=== PATIENT | male | born 1935 | race Asian ===

== ENCOUNTER 2016-11-17 14:01 | Emergency (ER) | payer MEDICARE, MEDICAID ==
--- NOTE | 2016-11-17 14:28 | ED Physician Chart ---
ED Chief Complaint/HPI - Patient Information Date Seen:: 11/17/16 Time Seen:: 14:27 Chief Complaint:: SYNCOPAL EPISODE 2 DAYS AGO Allergies:: Allergies Allergy/AdvReac Type Severity Reaction Status Date / Time No Known Allergies Allergy Verified 11/17/16 14:18 Vitals:: Vital Signs - 8 hr 11/17/16 14:18 Temp 98.2 F HR 76 RR 16 BP 121/66 O2 Sat % 97 ED Review of Systems - Review of Systems Neurological: Dizziness Family Medical History - Family Member Daughter Hx Family Cancer: No Hx Family Congestive Heart Failure: No Hx Family Hypertension: No Hx Family Stroke: No Hx Family Diabetes: No Hx Family Seizures: No Hx Family Dementia: No Hx Family AIDS: No Hx Family HIV: No Hx Family Hepatitis: No Hx Family Tuberculosis: No ED Physical Exam - Physical Examination General/Constitutional: Awake, Well-developed, well-nourished, Alert, No distress, GCS 15, Non-toxic appearing, Ambulatory Head: Atraumatic Eyes: Lids, conjuctiva normal, PERRL, EOMI Other Eyes comments:: Right eye with cataract present and left eye with lens implants. The patient has marked arcus of both corneas. Skin: No rash, No skin lesions, No ecchymosis, Well hydrated, No lymphadenopathy Other Skin comments:: MILD HYPER PIGMENTATION BOTH ANTERIOR TIBIAL AREAS ENMT: External ears, nose nl, TM canals nl, Nasal exam nl, Oropharynx nl, Tonsils nl Other ENMT comments:: Teeth poor repair. Good mucosal hydration. Neck: Nontender, Full ROM w/o pain, No JVD, No nuchal rigidity, No bruit, No mass, No stridor Other Neck comments:: Strong carotid pulses bilaterally. Respiratory: Nl effort/Exclusion, Clear to Auscultation, No Wheeze/Rhonchi/Rales Cardio Vascular: RRR, No murmur, gallop, rubs, NL S1 S2, Carotid/Femoral/Distal pulses equal bilaterally GI: No tenderness/rebounding/guarding, No organomegaly, No hernia, Normal BS's, Nondistended, No mass/bruits, No McBurney tenderness Other GI comments:: Rectal exam deferred at my discretion. : No CVA tenderness Extremities: No tenderness or effusion, Full ROM, normal strength in all extremities, No edema, Normal digits & nails Neuro/Psych: Alert/oriented, DTR's symmetric, Normal sensory exam, Normal motor strength, Mood normal, Normal gait Other Neuro/Psych comments:: Normal finger-nose and normal rapid alternating hand movements. ED Labs/Radiology/EKG Results - Lab Results Results: Laboratory Tests 11/17/16 11/17/16 11/17/16 14:47 14:47 14:47 WBC 8.4 RBC 3.99 Hgb 11.3 L Hct 33.8 L MCV 84.7 MCH 28.4 MCHC Differential 33.5 RDW 13.1 Plt Count 223 MPV 7.6 Neutrophils % 56.8 Lymphocytes % 32.2 Monocytes % 7.0 Eosinophils % 3.5 Basophils % 0.5 Sodium 133 L Potassium 4.4 Chloride 102 Carbon Dioxide 23.9 Anion Gap 11.5 BUN 20 Creatinine 1.3 Est GFR ( Amer) TNP Est GFR (Non-Af Amer) TNP BUN/Creatinine Ratio 15.4 Glucose 105 Calcium 10.1 Troponin I 0.02 VERY MILD ANEMIA WITHOUT CLINICAL SIGNIFICANCE. NO HYPOGLYCEMIA. NO SIGNIFICANT ELECTROLYTE IMBALANCE. TROPONIN WITHIN NORMAL PARAMETERS. CXR SINGLE PA VIEW: NO CARDIOMEGALY OR CHF. NO MEDIASTINAL WIDENING. NO PNEUMOTHORAX. NO PLEURAL EFFUSIONS. NO AREAS OF PULMONARY CONSOLIDATION. IMPRESSION: NO ACUTE CARDIOPULMONARY ABNORMALITIES. - EKG Interpretations EKG Time:: 14:52 Rate & Rhythm: normal sinus rhythm at a rate of 69 with no ectopy. [place]: the axis is normal. Intervals: normal ME interval. Normal QRS duration. Normal QT interval. Comments:: There is diffuse minimal elevation of the ST segments Impression: boardefline normal EKG. ED Septic Shock - . Is Septic Shock (SBP<90, OR Lactate>4 mmol\L) present?: No - <6hrs of presentation: Vital Signs: Vital Signs - 8 hr 11/17/16 14:18 Temp 98.2 F HR 76 RR 16 BP 121/66 O2 Sat % 97 ED Discharge Plan - Patient Disposition Instructions: Syncope, [id number]
[2016-11-17 15:19] LABS: % BASOPHILS 0.5 % (0.0-2.0); % EOSINOPHILS 3.5 % (0.0-5.0); % LYMPHOCYTES 32.2 % (20.0-50.0); % NEUTROPHILS 56.8 % (40.0-80.0); HEMATOCRIT 33.8 % (39.0-49.0); HEMOGLOBIN 11.3 gm/dL (12.6-17.4); MEAN CELL VOLUME 84.7 fl (80-99); MEAN CORPUSCULAR HEMOGLOBIN 28.4 pg (27.0-31.0); MEAN CORPUSCULAR HGB CONC 33.5 pg (28.0-36.0); MEAN PLATELET VOLUME 7.6 fl; NEUTROPHILE ABSOLUTE 4.8 Th/cmm (1.8-8.0); PLATELET COUNT 223 Th/cmm (150-400); RED BLOOD COUNT 3.99 Mil/cmm (3.80-5.80); RED CELL DISTRIBUTION WIDTH 13.1 % (11.5-20.0); WHITE BLOOD COUNT 8.4 Th/cmm (4.8-10.8)
[2016-11-17 15:30] LABS: ANION GAP 11.5 (7.0-16.0); BUN - UREA NITROGEN 20 mg/dL (7-25); BUN/CREATININE RATIO 15.4; CALCIUM SERUM 10.1 mg/dL (8.6-10.3); CARBON DIOXIDE 23.9 mEq/L (21.0-31.0); CHLORIDE 102 mEq/L (98-107); CREATININE - SERUM 1.3 mg/dL (0.7-1.3); GLUCOSE 105 mg/dL (70-105); POTASSIUM SERUM 4.4 mEq/L (3.5-5.1); SODIUM SERUM 133 mEq/L (136-145)
--- NOTE | 2016-11-18 07:56 | Diagnostic Imaging Report ---
CHEST X-RAY: AP view INDICATION: Syncope, weakness COMPARISON: None FINDINGS: There is no focal consolidation or pleural effusions The heart is normal in size. The osseous structures demonstrate no acute abnormalities. IMPRESSION: No focal consolidation identified.
--- NOTE | 2016-11-18 07:58 | Diagnostic Imaging Report ---
Bilateral carotid Doppler ultrasound exam HISTORY: Syncope Sonographic sector images were obtained to the carotid bifurcation regions bilaterally. Associated Doppler data was obtained. The exam demonstrates mild diffuse atherosclerotic changes throughout the bifurcation region. Focal irregular atherosclerotic plaque is noted within the common carotid artery in the region of the carotid bulb. Changes result in greater than 70% narrowing. Antegrade vertebral artery flow. Velocities and flow ratios are normal (size CSF CCA is 1.67). The exam of the left side demonstrates mild diffuse outs chronic changes and intimal thickening throughout the bifurcation region. Mild focal plaque noted in the distal carotid bulb region at the origin of the left internal and external carotid arteries. Changes result in less than 25% narrowing. Anterior vertebral artery flow. Velocities and flow ratios are normal (ICC/CCA equals 1.24). IMPRESSION: 1. Relatively large focus of intraluminal irregular plaque within the right common carotid artery regions/carotid bulb area. A CT angiogram study is recommended for further detail and assessment. 2. Mild diffuse atherosclerotic changes on the left side.
== END 2016-11-17 19:20 ==
LOC: ER 14:01
DX: R55 Syncope and collapse (principal); R94.31 Abnormal electrocardiogram [ECG] [EKG]
CPT/HCPCS: 36415-UA; 71010-TC; 80048-TC; 84484-TC; 85025-TC; 93005; 93880-TC

== ENCOUNTER 2016-12-08 10:24 | Inpatient (IN) | payer MEDICARE, MEDICAID ==
--- NOTE | 2016-12-08 10:40 | ED Physician Chart ---
ED Chief Complaint/HPI - Patient Information Date Seen:: 12/08/16 Time Seen:: 10:35 Chief Complaint:: Syncope History of Present Illness:: onset x one day of sycope, N/V; no trauma, H/As, neck pain, C/P, SOB, Abd. Pain , A/D/C, fever, chills, urinary s/s paresthesias, weakness,; pt admits to dizziness/vertigo Allergies:: Allergies Allergy/AdvReac Type Severity Reaction Status Date / Time No Known Allergies Allergy Verified 11/17/16 14:18 Historian:: Patient, Family Member Review:: Nurse's Note Reviewed ED Review of Systems - Review of Systems General/Constitutional: Fever, Chills, No weight loss, No weakness, No diaphoresis, No edema, No loss of appetite Skin: No skin lesions, No rash, No bruising Head: No headache, No light-headedness Eyes: No loss of vision, No pain, No diplopia ENT: No earache, No nasal drainage, No sore throat, No tinnitus Neck: No neck pain, No swelling, No thyromegaly, No stiffness, No mass noted Cardio Vascular: No chest pain, No palpitations, No PND, No orthopnea, No edema Pulmonary: No SOB, No cough, No sputum, No wheezing GI: No nausea, No vomiting, No diarrhea, No pain, No melena, No hematochezia, No constipation, No hematemesis G/U: No dysuria, No frequency, No hematuria Musculoskeletal: No bone or joint pain, No back pain, No muscle pain Endocrine: Polyuria, Polydipsia Psychiatric: No prior psych history, No depression, No anxiety, No suicidal ideation Hematopoietic: No bruising, No lymphadenopathy Allergic/Immuno: No urticaria, No angioedema Neurological: Syncope, No focal symptoms, Weakness, No paresthesia, No headache , No seizure, Dizziness, Confusion, Vertigo ED Past Medical History - Past Medical History Obtainable: Yes Past Medical History: HTN, DM, Dementia Family History: Diabetes Melitus, HTN Social History: Non Smoker, No Alcohol, No Drug Use, Surgical History: None Psychiatricy History: Dementia Medication: Reviewed Family Medical History - Family Member Daughter Hx Family Cancer: No Hx Family Congestive Heart Failure: No Hx Family Hypertension: No Hx Family Stroke: No Hx Family Diabetes: No Hx Family Seizures: No Hx Family Dementia: No Hx Family AIDS: No Hx Family HIV: No Hx Family Hepatitis: No Hx Family Tuberculosis: No ED Physical Exam - Physical Examination General/Constitutional: Awake, Well-developed, well-nourished, Alert, No distress, GCS 15, Non-toxic appearing, Ambulatory Head: Atraumatic Eyes: Lids, conjuctiva normal, PERRL, EOMI Skin: Nl inspection, No rash, No skin lesions, No ecchymosis, Well hydrated, No lymphadenopathy ENMT: External ears, nose nl, Nasal exam nl, Lips, teeth, gums nl Neck: Nontender, Full ROM w/o pain, No JVD, No nuchal rigidity, No bruit, No mass, No stridor Respiratory: Nl effort/Exclusion, Clear to Auscultation, No Wheeze/Rhonchi/Rales Cardio Vascular: RRR, No murmur, gallop, rubs, NL S1 S2 GI: No tenderness/rebounding/guarding, No organomegaly, No hernia, Normal BS's, Nondistended, No mass/bruits, No McBurney tenderness : No CVA tenderness Extremities: No tenderness or effusion, Full ROM, normal strength in all extremities, No edema, Normal digits & nails Neuro/Psych: Alert/oriented, DTR's symmetric, Normal sensory exam, Normal motor strength, Judgement/insight normal, Mood normal, Normal gait, No focal deficits ED Labs/Radiology/EKG Results - Lab Results Results: Na+: 133 - Radiology Results Results: NAD - EKG Interpretations EKG Time:: 10:50 Rate & Rhythm: 70; NSR Comments:: nonspecific st-t changes ED Septic Shock - . Is Septic Shock (SBP<90, OR Lactate>4 mmol\L) present?: No ED Reassessment (Disposition) - Reassessment Reassessment Condition:: Improved - Diagnosis Diagnosis:: Syncope; Nausea/Vomiting; Gastritis; TIA; Cardiac Arrythmias - Aftercare/Follow up Instructions Aftercare/Follow-Up Instructions:: Counseled pt regarding lab results/diagnosis & need follow up, Counseled pt & family regarding lab results/diagnosis & need follow up - Patient Disposition Discharge/Transfer:: Acute Care w/in this hosp Accepting Physician:: Dr. Wall Time Called:: 1140 Time Responded:: 11:40 Admitted to:: Telemetry Spoke to:: Dr. Wall Admitting Medical Physician:: Dr. Wall Condition at Disposition:: Stable, Improved
[2016-12-08 11:01] LABS: % BASOPHILS 0.9 % (0.0-2.0); % EOSINOPHILS 1.3 % (0.0-5.0); % LYMPHOCYTES 15.6 % (20.0-50.0); % MONOCYTES 5.7 % (2.0-10.0); % NEUTROPHILS 76.5 % (40.0-80.0); HEMATOCRIT 35.1 % (41.0-60); HEMOGLOBIN 11.6 gm/dL (12-16); MEAN CELL VOLUME 86.1 fl (80-99); MEAN CORPUSCULAR HEMOGLOBIN 28.5 pg (27.0-31.0); MEAN PLATELET VOLUME 6.8 fl; NEUTROPHILE ABSOLUTE 7.7 Th/cmm (1.8-8.0); PLATELET COUNT 261 Th/cmm (150-400); RED BLOOD COUNT 4.08 Mil/cmm (3.80-5.80)
[2016-12-08 11:03] LABS: WHITE BLOOD COUNT 10.1 Th/cmm (4.8-10.8)
[2016-12-08 11:15] LABS: INR 0.98 (0.5-1.4); PROTHROMBIN TIME (TEST) 10.2 SECONDS (9.5-11.5)
[2016-12-08 11:18] LABS: ALB/GLOB RATIO 1.5 (1.0-1.8); ALKALINE PHOSPHATASE 41 U/L (34-104); ANION GAP 10.7 (7.0-16.0); BILIRUBIN,TOTAL 0.5 mg/dL (0.3-1.0); BUN - UREA NITROGEN 17 mg/dL (7-25); BUN/CREATININE RATIO 15.5; CALCIUM SERUM 9.6 mg/dL (8.6-10.3); CARBON DIOXIDE 26.3 mEq/L (21.0-31.0); CHLORIDE 100 mEq/L (98-107); CHOLESTEROL 192 mg/dL (<200); CREATININE - SERUM 1.1 mg/dL (0.7-1.3); GLUCOSE 131 mg/dL (70-105); SGOT 15 U/L (13-39); SGPT/ALT 10 U/L (7-52); SODIUM SERUM 133 mEq/L (136-145); TRIGLYCERIDES 106 mg/dL (<150)
--- NOTE | 2016-12-08 11:18 | Diagnostic Imaging Report ---
CT scan of the brain without intravenous contrast HISTORY: Syncope Total DLP equals 529 CTDI equals 32.4 Axial sections were obtained from the base of the skull to the vertex. There is prominence/enlargement of the ventricular system size. Associated enlargement of cerebral sulci and subarachnoid cisterns. Findings are consistent with changes of generalized cerebral atrophy. No acute parenchymal abnormalities. No acute cerebral hemorrhage. Hypodensity is seen within the supratentorial white matter regions without mass effect. The findings may be associated with chronic small vessel ischemic disease. No extra-axial masses or abnormal fluid collections. IMPRESSION: 1. No acute abnormalities 2. Cerebral atrophy 3. Supratentorial white matter changes that may reflect chronic small vessel ischemic disease
--- NOTE | 2016-12-08 11:18 | Diagnostic Imaging Report ---
Portable chest x-ray History: Pain Allowing for portable technique the heart size is normal. No focal pulmonary parenchymal processes. No hilar or mediastinal abnormalities. Impression: No acute abnormalities.
[2016-12-08] MEDS ORDERED: VTE Chemical Prophylaxis Screen/Admission MC PRN (16:12)
[2016-12-08] MEDS ORDERED: INSULIN ASPART SLIDING SCALE 100 UNITS/ML UNIT SUBQ SCH (16:30)
[2016-12-08] MEDS: INSULIN ASPART SLIDING SCALE 100 UNITS/ML UNIT SUBQ SCH ×2 (17:14→20:41)
[2016-12-08] MEDS: Ferrous Sulfate 325 MG TAB PO SCH (17:15)
[2016-12-08 17:52] VITALS: BP 140/72
--- NOTE | 2016-12-09 04:39 | Consultation ---
DATE OF CONSULTATION: 12/08/[address] Wall. HISTORY AND PHYSICAL: This 81-year-old male patient who had near syncope. Following this, the patient was brought to the Emergency Room. No history of chest pain, palpitation, ____ syncope. The patient does complain of vertigo and dizziness. PAST MEDICAL HISTORY: Vertigo, hypertension, diabetes mellitus type 2, dementia, and right carotid stenosis. FAMILY HISTORY: Unremarkable. SOCIAL HISTORY: No history of smoking or alcohol abuse. ALLERGIES: None. PHYSICAL EXAMINATION: VITAL SIGNS: Blood pressure 120/80, pulse 70, and respirations 20. HEAD: Normocephalic. No lumps or bumps. EYES: Pupils are equal and reactive to light. Fundi show AV nicking, sclerae white, and conjunctivae pink. NECK: Carotid 2+, normal upstroke minimal right carotid. CHEST/LUNGS: Clear. HEART: Regular rhythm, S1, S2. No S3, S4. ABDOMEN: Soft. Liver and spleen not palpable. No organomegaly. Bowel sounds active. NEUROLOGIC: No focal neurological deficit. EXTREMITIES: Peripheral pulses 2+. No pedal edema. CLINICAL IMPRESSION: Syncope, vertigo, hypertension, diabetes mellitus type 2, dementia, and right carotid stenosis. PLAN: Admit the patient. We will continue with the present management, get echocardiogram, CAT scan of the brain. Monitor the patient on telemetry bed for arrhythmias. JOB# [id number]
[2016-12-09 06:18] LABS: % EOSINOPHILS 3.9 % (0.0-5.0); % LYMPHOCYTES 36.3 % (20.0-50.0); % NEUTROPHILS 49.8 % (40.0-80.0); HEMATOCRIT 34.8 % (41.0-60); HEMOGLOBIN 11.7 gm/dL (12-16); MEAN CELL VOLUME 86.5 fl (80-99); MEAN CORPUSCULAR HEMOGLOBIN 29.1 pg (27.0-31.0); MEAN CORPUSCULAR HGB CONC 33.6 pg (28.0-36.0); MEAN PLATELET VOLUME 7.1 fl; NEUTROPHILE ABSOLUTE 3.3 Th/cmm (1.8-8.0); PLATELET COUNT 230 Th/cmm (150-400); RED BLOOD COUNT 4.03 Mil/cmm (3.80-5.80); RED CELL DISTRIBUTION WIDTH 12.6 % (11.5-20.0)
[2016-12-09 06:30] LABS: WHITE BLOOD COUNT 6.8 Th/cmm (4.8-10.8)
[2016-12-09 06:54] LABS: ALB/GLOB RATIO 1.4 (1.0-1.8); ALKALINE PHOSPHATASE 38 U/L (34-104); ANION GAP 10.3 (7.0-16.0); BILIRUBIN,TOTAL 0.5 mg/dL (0.3-1.0); BUN - UREA NITROGEN 14 mg/dL (7-25); BUN/CREATININE RATIO 15.6; CALCIUM SERUM 9.6 mg/dL (8.6-10.3); CARBON DIOXIDE 27.5 mEq/L (21.0-31.0); CHLORIDE 101 mEq/L (98-107); CREATININE - SERUM 0.9 mg/dL (0.7-1.3); GLUCOSE 127 mg/dL (70-105); POTASSIUM SERUM 3.8 mEq/L (3.5-5.1); SGOT 14 U/L (13-39); SGPT/ALT 9 U/L (7-52); SODIUM SERUM 135 mEq/L (136-145)
[2016-12-09] MEDS ORDERED: Pneumococcal Vaccine 0.5 mL Vial IM ONE (09:00)
[2016-12-09] MEDS ORDERED: BESIFLOXACIN HCL OP SCH ×2 (09:00→16:10)
[2016-12-09] MEDS ORDERED: LOTEPREDNOL ETABONATE 5 GM OP SCH ×2 (09:00→16:14)
[2016-12-09] MEDS ORDERED: NEPAFENAC OP SCH (09:00)
--- NOTE | 2016-12-09 09:04 | History and Physical ---
History of Present Illness - HPI Chief Complaint: Syncope HPI: Patient refer that he has fainted 2 times during last 2 days, refer dizziness during episodes. Vital Signs: Last Vital Signs Temp 97.7 F 12/09/16 08:00 Pulse 68 12/09/16 08:00 Resp 18 12/09/16 08:00 BP 129/60 12/09/16 08:00 Pulse Ox 97 12/09/16 08:00 Past Medical History Cardiovascular: Report: CAD Pulmonary: Report: No Pertinent Hx MANAGER OF BUSINESS: Report: Dementia GI: Report: No Pertinent Hx Psych: Report: Schizophrenia Musculoskeletal: Report: No Pertinent Hx Rheumatologic: Report: No pertinent Hx Infectious Disease: Report: No Pertinent Hx Renal/: Report: No Pertinent Hx Endocrine: Report: Diabetes - Past Surgical History Past Surgical History: No pertinent Hx Family Medical History - Family Member Daughter Ethnicity: Non- Hx Family Cancer: No Hx Family Congestive Heart Failure: No Hx Family Hypertension: No Hx Family Stroke: No Hx Family Diabetes: No Hx Family Seizures: No Hx Family Dementia: No Hx Family AIDS: No Hx Family HIV: No Hx Family COPD: No Hx Family Hepatitis: No Hx Family Tuberculosis: No Other Medical History: pt family states pt has a hx of HTN, DM, and begining stages of dementia Social History Smoke: No Alcohol: None Drugs: None Lives: With Family Domestic Violence: Negative - Medications Home Medications: Home Medication Medication Instructions Recorded Type Aspirin [Aspirin Chewable] 81 mg PO DAILY 12/08/16 History Besifloxacin HCl [Besivance] 5 ml OP BID 12/08/16 History Donepezil HCl [Aricept] 10 mg PO HS 12/08/16 History Folic Acid/Mv,Fe,Min [Centrum 1 each PO DAILY 12/08/16 History Chewable Tablet] Glipizide [Glucotrol Xl] 2.5 mg PO BID 12/08/16 History Iron [Iron] 65 mg PO BID 12/08/16 History Losartan Potassium [Cozaar] 50 mg PO DAILY 12/08/16 History Loteprednol Etabonate [Lotemax] 5 gm OP BID 12/08/16 History Memantine HCl [Namenda Xr] 28 mg PO HS 12/08/16 History Metoprolol Tartrate 25 mg PO DAILY 12/08/16 History Nepafenac [Ilevro] 3 ml OP DAILY 12/08/16 History Sitagliptin Phosphate [Januvia] 100 mg PO DAILY 12/08/16 History Tamsulosin HCl [Flomax] 0.4 mg PO HS 12/08/16 History metFORMIN [Glucophage] 1,000 mg PO BID 12/08/16 History - Allergies Allergies/Adverse Reactions: Allergies Allergy/AdvReac Type Severity Reaction Status Date / Time No Known Allergies Allergy Verified 11/17/16 14:18 Review of Systems - Review of Systems Constitutional: Report: No Significant Eyes: Report: No Significant ENT: Report: No Significant Respiratory: Report: No Significant Cardiovascular: Report: No Significant Gastrointestinal: Report: No Significant Genitourinary: Report: No Significant Musculoskeletal: Report: No Significant Skin: Report: No Significant Neurological: Report: Weakness Physical Exam - Physical Exam HEENT: Report: Ears Nose Throat within normal limits Neck: Report: Within normal limits Cardiovascular Systems: Report: Regular, Rate and Rhythm Respiratory: Report: Breath Sounds are within normal limits Abdomen: Report: Non-tender to palpation Back: Report: Inspection of back is within normal limits. Extremities: Report: Non-tender to palpation. Skin: Report: Color of skin is within normal limits, Warm, Dry Neuro/Psych: Report: Disoriented to name time or place - Lab Results All Lab Results last 24 hours: Laboratory Last Values WBC 6.8 Th/cmm (4.8-10.8) D 12/09/16 06:00 RBC 4.03 Mil/cmm (3.80-5.80) 12/09/16 06:00 Hgb 11.7 gm/dL (12-16) L 12/09/16 06:00 Hct 34.8 % (41.0-60) L 12/09/16 06:00 MCV 86.5 fl (80-99) 12/09/16 06:00 MCH 29.1 pg (27.0-31.0) 12/09/16 06:00 MCHC Differential 33.6 pg (28.0-36.0) 12/09/16 06:00 RDW 12.6 % (11.5-20.0) 12/09/16 06:00 Plt Count 230 Th/cmm (150-400) 12/09/16 06:00 MPV 7.1 fl 12/09/16 06:00 Neutrophils % 49.8 % (40.0-80.0) 12/09/16 06:00 Lymphocytes % 36.3 % (20.0-50.0) 12/09/16 06:00 Monocytes % 9.0 % (2.0-10.0) 12/09/16 06:00 Eosinophils % 3.9 % (0.0-5.0) 12/09/16 06:00 Basophils % 1.0 % (0.0-2.0) 12/09/16 06:00 PT 10.2 SECONDS (9.5-11.5) 12/08/16 10:53 INR 0.98 (0.5-1.4) 12/08/16 10:53 Sodium 135 mEq/L (136-145) L 12/09/16 06:00 Potassium 3.8 mEq/L (3.5-5.1) 12/09/16 06:00 Chloride 101 mEq/L (98-107) 12/09/16 06:00 Carbon Dioxide 27.5 mEq/L (21.0-31.0) 12/09/16 06:00 Anion Gap 10.3 (7.0-16.0) 12/09/16 06:00 BUN 14 mg/dL (7-25) 12/09/16 06:00 Creatinine 0.9 mg/dL (0.7-1.3) 12/09/16 06:00 Est GFR ( Amer) TNP 12/09/16 06:00 Est GFR (Non-Af Amer) TN 12/09/16 06:00 BUN/Creatinine Ratio 15.6 12/09/16 06:00 Glucose 127 mg/dL (70-105) H 12/09/16 06:00 POC Glucose 120 MG/DL (70 - 105) H 12/09/16 06:35 Calcium 9.6 mg/dL (8.6-10.3) 12/09/16 06:00 Total Bilirubin 0.5 mg/dL (0.3-1.0) 12/09/16 06:00 AST 14 U/L (13-39) 12/09/16 06:00 ALT 9 U/L (7-52) 12/09/16 06:00 Alkaline Phosphatase 38 U/L (34-104) 12/09/16 06:00 Creatine Kinase 67 U/L (30-223) 12/08/16 10:53 Troponin I 0.02 ng/mL (0.01-0.05) 12/08/16 10:53 B-Natriuretic Peptide 54.5 pg/mL (5.0-100.0) 12/08/16 10:53 Total Protein 6.7 gm/dL (6.0-8.3) 12/09/16 06:00 Albumin 3.9 gm/dL (4.2-5.5) L 12/09/16 06:00 Globulin 2.8 gm/dL 12/09/16 06:00 Albumin/Globulin Ratio 1.4 (1.0-1.8) 12/09/16 06:00 Triglycerides 106 mg/dL (<150) 12/08/16 10:53 Cholesterol 192 mg/dL (<200) 12/08/16 10:53 LDL Cholesterol Direct 133 mg/dL (75-193) 12/08/16 10:53 HDL Cholesterol 42 mg/dL (23-92) 12/08/16 10:53 Laboratory Results - last 24 hr 12/08/16 12/09/16 12/09/16 20:36 06:00 06:00 WBC 6.8 D RBC 4.03 Hgb 11.7 L Hct 34.8 L MCV 86.5 MCH 29.1 MCHC Differential 33.6 RDW 12.6 Plt Count 230 MPV 7.1 Neutrophils % 49.8 Lymphocytes % 36.3 Monocytes % 9.0 Eosinophils % 3.9 Basophils % 1.0 Sodium 135 L Potassium 3.8 Chloride 101 Carbon Dioxide 27.5 Anion Gap 10.3 BUN 14 Creatinine 0.9 Est GFR ( Amer) TNP Est GFR (Non-Af Amer) TNP BUN/Creatinine Ratio 15.6 Glucose 127 H POC Glucose 118 H Calcium 9.6 Total Bilirubin 0.5 AST 14 ALT 9 Alkaline Phosphatase 38 Total Protein 6.7 Albumin 3.9 L Globulin 2.8 Albumin/Globulin Ratio 1.4 12/09/16 06:35 WBC RBC Hgb Hct MCV MCH MCHC Differential RDW Plt Count MPV Neutrophils % Lymphocytes % Monocytes % Eosinophils % Basophils % Sodium Potassium Chloride Carbon Dioxide Anion Gap BUN Creatinine Est GFR ( Amer) Est GFR (Non-Af Amer) BUN/Creatinine Ratio Glucose POC Glucose 120 H Calcium Total Bilirubin AST ALT Alkaline Phosphatase Total Protein Albumin Globulin Albumin/Globulin Ratio - Assessment Assessment: Current Active Problems Problem Status Onset NAUSEA AND VOMITING WITH DIZZINESS Acute - Plan Plan: Patient is continue with home meds, consult with Neurology and Cardiology requested, Carotid US requested. Will continue to monitor.
[2016-12-09] MEDS: Multivitamin w/ Minerals Tab PO SCH (09:12)
[2016-12-09] MEDS: Aspirin 81mg Chewable Tab PO SCH (09:14)
[2016-12-09] MEDS: Ferrous Sulfate 325 MG TAB PO SCH ×2 (09:14→17:29)
[2016-12-09] MEDS: INSULIN ASPART SLIDING SCALE 100 UNITS/ML UNIT SUBQ SCH ×3 (13:04→21:14)
--- NOTE | 2016-12-09 14:30 | Diagnostic Imaging Report ---
Carotid ultrasound HISTORY: Syncope COMPARISON: None Technique: Longitudinal and transverse sonographic sector images of the carotid arteries were obtained with doppler analysis. FINDINGS: Exam of the right side demonstrates intimal thickening and mild generalized atherosclerotic vascular disease. Exam of the left side evidence of intimal thickening and mild to moderate generalized atherosclerotic vascular disease. The velocity and velocity ratios are within normal limits. Antegrade vertebral artery flow is demonstrated bilaterally. IMPRESSION: Mild to moderate atherosclerotic vascular disease, left greater than right. No evidence of hemodynamically significant stenosis
--- NOTE | 2016-12-09 18:32 | Cardiology ---
12/09/2016 PATIENT OF: Dr. Wall M-MODE ECHOCARDIOGRAM: Mitral valve, anterior leaflet of mitral valve shows decreased excursion, EF velocity. Posterior leaflet of the mitral valve shows decreased excursion. Left ventricular posterior wall shows increased thickness, decreased excursion. Interventricular septum shows increased thickness, decreased excursion, ejection fraction 40%. Left atrium normal. Aortic root shows normal dimension, normal excursion of aortic leaflets. CONCLUSION: Cardiomyopathy, ejection fraction 40%, minimal hypertrophy of the left ventricle. 2D ECHOCARDIOGRAM: Long axis view showed normal sized left ventricle with hypertrophy of the left ventricle. Left atrium normal. Aortic root shows normal dimension, normal excursion of aortic leaflets. Short axis view of mitral valve normal. Short axis view of aortic valve normal. Apical four chamber view showed normal sized left ventricle with hypertrophy of the left ventricle. Left atrium normal. Right ventricular cavity, right atrium normal, no pericardial effusion. CONCLUSION: Cardiomyopathy, ejection fraction 40%, minimal hypertrophy of the left ventricle. Doppler study showed mild mitral regurgitation, mild tricuspid regurgitation, mild aortic regurgitation. Right ventricular systolic pressure 38 mmHg. [facility]# [id number]
[2016-12-09] MEDS: [UNRECOGNIZED DRUG - OTHER] RIGHT EYE SCH (21:06)
[2016-12-10] MEDS: INSULIN ASPART SLIDING SCALE 100 UNITS/ML UNIT SUBQ SCH ×2 (07:07→13:10)
[2016-12-10] MEDS ORDERED: NEPAFENAC RIGHT EYE SCH (09:00)
[2016-12-10] MEDS: Ferrous Sulfate 325 MG TAB PO SCH (09:28)
[2016-12-10] MEDS: Aspirin 81mg Chewable Tab PO SCH (09:31)
[2016-12-10] MEDS: Multivitamin w/ Minerals Tab PO SCH (09:34)
[2016-12-10] MEDS: [UNRECOGNIZED DRUG - OTHER] RIGHT EYE SCH (09:35)
--- NOTE | 2016-12-10 16:56 | Discharge Summary ---
General Discharge Summary - Discharge Summary Date of Admission: 12/08/16 Admitting Diagnosis: Syncope Patient Problems: All Active Problems NAUSEA AND VOMITING WITH DIZZINESS (Acute) Discharge Date: 12/10/16 Discharge Diagnosis: Vertigo, syncope Laboratory Findings: Laboratory Tests 12/08/16 12/09/16 12/09/16 20:36 06:00 06:00 WBC 6.8 D RBC 4.03 Hgb 11.7 L Hct 34.8 L MCV 86.5 MCH 29.1 MCHC Differential 33.6 RDW 12.6 Plt Count 230 MPV 7.1 Neutrophils % 49.8 Lymphocytes % 36.3 Monocytes % 9.0 Eosinophils % 3.9 Basophils % 1.0 Sodium 135 L Potassium 3.8 Chloride 101 Carbon Dioxide 27.5 Anion Gap 10.3 BUN 14 Creatinine 0.9 Est GFR ( Amer) TNP Est GFR (Non-Af Amer) TNP BUN/Creatinine Ratio 15.6 Glucose 127 H POC Glucose 118 H Calcium 9.6 Total Bilirubin 0.5 AST 14 ALT 9 Alkaline Phosphatase 38 Total Protein 6.7 Albumin 3.9 L Globulin 2.8 Albumin/Globulin Ratio 1.4 12/09/16 12/09/16 12/09/16 06:35 12:08 17:28 WBC RBC Hgb Hct MCV MCH MCHC Differential RDW Plt Count MPV Neutrophils % Lymphocytes % Monocytes % Eosinophils % Basophils % Sodium Potassium Chloride Carbon Dioxide Anion Gap BUN Creatinine Est GFR ( Amer) Est GFR (Non-Af Amer) BUN/Creatinine Ratio Glucose POC Glucose 120 H 280 H 94 Calcium Total Bilirubin AST ALT Alkaline Phosphatase Total Protein Albumin Globulin Albumin/Globulin Ratio 12/09/16 12/10/16 12/10/16 21:10 06:22 12:14 WBC RBC Hgb Hct MCV MCH MCHC Differential RDW Plt Count MPV Neutrophils % Lymphocytes % Monocytes % Eosinophils % Basophils % Sodium Potassium Chloride Carbon Dioxide Anion Gap BUN Creatinine Est GFR ( Amer) Est GFR (Non-Af Amer) BUN/Creatinine Ratio Glucose POC Glucose 138 H 129 H 244 H Calcium Total Bilirubin AST ALT Alkaline Phosphatase Total Protein Albumin Globulin Albumin/Globulin Ratio Hospital Course: Patient was admitted to Med/Surg. he was started in IV NS, continue with home meds,. Consult wit cardio was done and recommendations were follow. Treatment: IV NS, Continue with home meds. Head CT, Echocardiogram and carotid US were done. Disposition: PT DISCHARGED HOME Home Medications: Home Medication Medication Instructions Recorded Type Aspirin [Aspirin Chewable] 81 mg PO DAILY 12/08/16 History Besifloxacin HCl [Besivance] 5 ml OP BID 12/08/16 History Donepezil HCl [Aricept] 10 mg PO HS 12/08/16 History Folic Acid/Mv,Fe,Min [Centrum 1 each PO DAILY 12/08/16 History Chewable Tablet] Glipizide [Glucotrol Xl] 2.5 mg PO BID 12/08/16 History Iron 65 mg PO BID 12/08/16 History Losartan Potassium [Cozaar] 50 mg PO DAILY 12/08/16 History Loteprednol Etabonate [Lotemax] 5 gm OP BID 12/08/16 History Memantine HCl [Namenda Xr] 28 mg PO HS 12/08/16 History Metoprolol Tartrate 25 mg PO DAILY 12/08/16 History Nepafenac [Ilevro] 3 ml OP DAILY 12/08/16 History Sitagliptin Phosphate [Januvia] 100 mg PO DAILY 12/08/16 History Tamsulosin HCl [Flomax] 0.4 mg PO HS 12/08/16 History metFORMIN [Glucophage] 1,000 mg PO BID 12/08/16 History Meclizine [Antivert*] 25 mg PO Q8HR #30 tab 12/10/16 Rx Simvastatin [Zocor] 10 mg PO QPM #30 tab 12/10/16 Rx Sitagliptin [Januvia] 100 mg PO DAILY tab 12/10/16 Rx Prescriptions: Meclizine [Antivert*] 25 mg PO Q8HR #30 tab Simvastatin [Zocor] 10 mg PO QPM #30 tab Discharge Diet: Regular Consults and Follow-Up: not on staff,PCP is [Primary Care Provider] - Consulting Speciality: Neurology Instructions: Type 2 Diabetes Mellitus, Adult, Near-Syncope, Dementia
== END 2016-12-10 13:00 | disposition home or self-care (01) | DRG 312 ==
LOC: ER 10:24 → TELE 12:10
PROVIDERS: ADMIT General Practice; ATTEND General Practice
DX: R55 Syncope and collapse (principal); I65.21 Occlusion and stenosis of right carotid artery; E11.9 Type 2 diabetes mellitus without complications; F03.90 Unspecified dementia, unspecified severity, without behavioral disturbance, psychotic disturbance, mood disturbance, and anxiety; K29.70 Gastritis, unspecified, without bleeding; F20.9 Schizophrenia, unspecified; I10 Essential (primary) hypertension; R11.2 Nausea with vomiting, unspecified; I49.9 Cardiac arrhythmia, unspecified; R42 Dizziness and giddiness; I25.10 Atherosclerotic heart disease of native coronary artery without angina pectoris; Z79.82 Long term (current) use of aspirin; Z79.84 Long term (current) use of oral hypoglycemic drugs; Z83.3 Family history of diabetes mellitus; Z82.49 Family history of ischemic heart disease and other diseases of the circulatory system
CPT/HCPCS: 36415-UA; 70450-TC; 71010-TC; 80053-TC; 80061-TC; 82550-TC; 82948-90; 83880-TC; 84484-TC; 85025-TC; 85610-TC; 90732; 93005; 93880-TC; J1644; J1815; Z7610